=== PATIENT | male | born 1955 | race Asian ===

== ENCOUNTER 2018-11-05 15:27 | Emergency (ER) | payer OTHER ==
[~2018-11-05] VITALS: Ht 180.3 cm; Wt 85.7 kg
[2018-11-05 15:50] VITALS: TEMP 98.4
[2018-11-05 18:29] VITALS: BP 119/70
== END 2018-11-05 18:29 | disposition home or self-care (01) ==
LOC: ED 15:27
DX: J02.9 Acute pharyngitis, unspecified (principal); K12.2 Cellulitis and abscess of mouth; K04.7 Periapical abscess without sinus; F17.210 Nicotine dependence, cigarettes, uncomplicated
CPT/HCPCS: 87502; 87651; 99283